=== PATIENT | male | born 1960 | race Caucasian/White ===

== ENCOUNTER 2017-07-20 10:10 | Outpatient (CLI) | payer OTHER ==
[2017-07-20 12:06] LABS: #Basophils 0.1 thou/uL (0.0-0.2); #Eosinphils 0.1 thou/uL (0.0-0.7); #Lymphocytes 1.3 thou/uL (1.20-3.40); #Monocytes 0.6 thou/uL (0.11-0.59); #Neutrophils 4.2 thou/uL (1.40-6.50); %Basophils 0.8 % (0.0-1.0); %Eosinophils 0.9 % (0.0-10.0); %Lymphocytes 21.1 % (21.0-51.0); %Monocytes 9.6 % (0.0-10.0); %Neutrophils 67.6 % (42.0-75.0); Hemoglobin 12.3 g/dL (14.0-18.0); Mean Corpuscular HGB CONC 32.5 g/dL (32.0-36.0); Mean Corpuscular Hemoglobin 25.8 pg (27.0-31.0); Mean Corpuscular Volume 79.4 fl (80.0-94.0); Mean Platelet Volume 6.1 fL (7.4-10.4); Platelet Count 272 thou/uL (130-400); RBC Distribution Width 13.9 % (11.5-14.5); Red Blood Cell (RBC) Count 4.77 mill/uL (4.70-6.10); White Blood Cell (WBC) Count 6.3 thou/uL (4.8-10.8)
[2017-07-20 12:32] LABS: ALT (SGPT) 15 U/L (8-55); AST (SGOT) 18 U/L (5-34); Albumin 3.8 g/dL (3.5-5.0); Alkaline Phosphatase 88 U/L (40-150); Anion Gap 13 mmol/L (10-20); BUN (Urea Nitrogen) 14 mg/dL (8.4-25.7); Bilirubin, Direct 0.2 mg/dL (0.1-0.3); Bilirubin, Total 0.3 mg/dL (0.2-1.2); CRP (Inflammatory) 0.82 mg/dL (= or < 0.5); Calc. Creatinine Clearance 0 mL/min (70-130); Calcium 9.4 mg/dL (7.8-10.44); Carbon Dioxide 29 mmol/L (22-29); Chloride 104 mmol/L (98-107); Estimated GFR-MDRD 75; Glucose 95 mg/dL (70-105); Protein, Total 8.1 g/dL (6.0-8.3); Sodium 141 mmol/L (136-145)
--- NOTE | 2017-07-20 13:37 | RAD ---
RIGHT KNEE 3 VIEWS: HISTORY: Right knee pain. FINDINGS: Right knee prosthesis in place without perihardware lucency. Heterotopic ossification over the supra patellar bursa without significant fluid distention. No acute fracture, dislocation, or aggressive e rosions. Soft tissue swelling with some distortion of fat planes superior to the patella. IMPRESSION: 1. Right knee prosthesis in place without evidence of hardware complication. 2. Soft tissue swelling suprapatellar area. Cause is not evident. POS: [facility]
--- NOTE | 2017-07-20 15:42 | NM ---
WHOLE BODY BONE SCAN WITH TRIPLE PHASE IMAGING THROUGH THE KNEES: 07/20/17 HISTORY: 57-year-old male with right knee replacement two years ago, pain in the right knee. RADIOPHARMACEUTICAL: 31.4 millicuries technetium 99m-MDP injected intravenously. FINDINGS: There is increased blood flow and blood pooling in the right knee compared to the left knee. Delayed images also demonstrate increased periarticular uptake along the right knee replacement. Mild increas ed uptake in the left knee likely due to degenerative changes. Degenerative changes are also seen in the shoulders, elbows, wrists, hips, feet and cervical spine. T racer excretion of both kidneys are within normal limits. Correlation is made with the plain radiographs of the right knee from the same date. IMPRESSION: Findings are suspicious for right knee infection/loosening involving the right knee arthroplasty. POS: [facility]
== END 2017-07-20 10:11 | disposition home or self-care (01) ==
LOC: NM 10:10
PROVIDERS: ATTEND Internal Medicine Infectious Disease
DX: M79.89 Other specified soft tissue disorders (principal); M25.561 Pain in right knee; Z96.651 Presence of right artificial knee joint
CPT/HCPCS: 78315; 80048; 80076; 85025; 86140; A9503

== ENCOUNTER 2017-07-25 16:15 | Inpatient (IN) | payer OTHER ==
[2017-07-27] MEDS ORDERED: Fentanyl 100 MCG/2 ML VIAL ONE ×6 (10:25→16:03)
[2017-07-27] MEDS ORDERED: Ropivacaine 0.2% HCl/PF 20 ML ONE (10:25)
[2017-07-27] MEDS ORDERED: Midazolam HCl 2 mg/2 ml Vial ONE (10:25)
[2017-07-27] MEDS ORDERED: Sodium Chloride 0.9% 100 ML ONE (10:25)
[2017-07-27] MEDS ORDERED: Zolpidem Tartrate 5 MG TAB PO PRN (12:05)
[2017-07-27] MEDS ORDERED: Ondansetron HCl/PF 4 MG/2 ML Vial IVP PRN ×3 (12:05→14:25)
[2017-07-27] MEDS ORDERED: traMADol HCl 50 MG TAB PO PRN ×3 (12:05→12:31)
[2017-07-27] MEDS ORDERED: HYDROcodone/Acetaminophen 10/325 mg Tablet PO PRN (12:05)
[2017-07-27] MEDS ORDERED: Bupivacaine 0.5% 50 ML in Sodium Chloride 0.9% 50 ML NERVE BLCK SCH (12:05)
[2017-07-27] MEDS ORDERED: Promethazine HCl 25 MG/ML VIAL IM PRN ×3 (12:05→14:25)
[2017-07-27] MEDS ORDERED: Fentanyl 100 MCG/2 ML VIAL IV PRN (12:06)
[2017-07-27] MEDS ORDERED: Acetaminophen 325 MG TAB PO PRN (12:31)
[2017-07-27] MEDS ORDERED: Fentanyl 100 MCG/2 ML VIAL SLOW IVP PRN (12:31)
[2017-07-27] MEDS ORDERED: diphenhydrAMINE 25 MG CAP PO PRN (12:31)
[2017-07-27] MEDS ORDERED: Tobramycin/Dexamethasone Ophth Oint 3.5 GM TUBE ONE (12:38)
[2017-07-27] MEDS ORDERED: Tobramycin Sulfate 1.2 GM VIAL ONE ×2 (12:40→12:41)
[2017-07-27] MEDS ORDERED: Tranexamic Acid 1,000 MG in Sodium Chloride 0.9% 100 ML IVPB SCH (12:45)
[2017-07-27] MEDS ORDERED: Promethazine HCl 25 MG/ML VIAL SLOW IVP PRN (14:25)
[2017-07-27] MEDS ORDERED: Fentanyl 250 MCG/5 ML VIAL ONE (14:36)
[2017-07-27] MEDS ORDERED: Promethazine HCl 25 MG/ML VIAL ONE ×2 (15:15→15:37)
[2017-07-27] MEDS ORDERED: Ropivacaine 0.2% HCl/PF (40 MG/20 ML VIAL) ONE (15:37)
[2017-07-27] MEDS ORDERED: Ropivacaine 0.5% HCl/PF (150 MG/30 ML VIAL) ONE (15:37)
[2017-07-27] MEDS ORDERED: Lidocaine 1% PF 5 ML VIAL ONE (15:48)
[2017-07-27] MEDS ORDERED: ePHEDrine/0.9% NaCl/PF SYRINGE 50 mg/10 ml ONE (15:48)
[2017-07-27] MEDS ORDERED: PHENYLEPHRINE-NS 100 MCG/ML 10 ML SYRINGE ONE (15:48)
[2017-07-27] MEDS ORDERED: PROPOFOL 200 MG/20 ML VIAL ONE (15:48)
[2017-07-27] MEDS ORDERED: Ketorolac Tromethamine 30 MG/ML VIAL ONE (15:48)
[2017-07-27] MEDS ORDERED: Ondansetron HCl/PF 4 MG/2 ML Vial ONE (15:48)
--- NOTE | 2017-07-27 15:49 | RAD ---
TWO VIEWS OF THE RIGHT KNEE: COMPARISON: 07/20/17. HISTORY: Status post right knee arthroplasty revision. FINDINGS: Two views of the right knee were performed. There has been removal of both the tibia and femoral micah dware. Significant bone cement is present and there is different-appearing hardware in both the femu r and tibia. Surrounding air is from recent surgery. IMPRESSION: Status post right knee arthroplasty revision as above. POS: [facility]
--- NOTE | 2017-07-27 17:24 | SPC ---
ULTRASOUND FLUOROSCOPIC GUIDED LEFT UPPER EXTREMITY PICC LINE PLACEMENT 07/27/17 INDICATION: Need for termite exterminator IV antibiotics; history of right total knee infection. TECHNIQUE: Informed consent was obtained. Preprocedural ultrasound demonstrates a patent left basilic vein. Site overlying left basilic vein was prepped and draped in the usual sterile fashion. 1% lidocaine was ad ministered overlying the subcutaneous tissues. Under ultrasound guidance, a micropuncture access kit was utilized to gain access to left basilic vein. Guide wire was advanced over the wire and into the sheath. The sheath and wire were removed. The catheter flushed and aspirated appropriately. Tip of th e catheter seen at the level of the cavoatrial junction. Total fluoroscopic time was 0.3 minutes. Tot al exposure was 2897 mGy. IMPRESSION: Successful left upper extremity PICC line placement. POS: [facility]
[2017-07-27] MEDS: Sodium Chloride 0.9% 1,000 ML IV SCH ×2 (17:55→23:50)
[2017-07-27] MEDS: CEFAZOLIN/Water 2 GM/20 ML SYRINGE SLOW IVP SCH ×2 (18:12→22:33)
[2017-07-27] MEDS: HYDROcodone/Acetaminophen 10/325 mg Tablet PO PRN ×2 (18:35→22:32)
[2017-07-27] MEDS: Senokot S 8.6-50 MG TAB PO SCH (20:37)
[2017-07-27] MEDS: Ketorolac Tromethamine 30 MG/ML VIAL IVP SCH (20:37)
[2017-07-27] MEDS: Ferrous Gluconate 324 MG TAB PO SCH (20:37)
[2017-07-27] MEDS: Aspirin 81 mg Enteric Coated Tablet PO SCH (20:37)
[2017-07-28] MEDS ORDERED: Vancomycin HCl 1.5 GM in Sodium Chloride 0.9% 250 ML 300 ML IVPB SCH (02:00)
[2017-07-28] MEDS: HYDROcodone/Acetaminophen 10/325 mg Tablet PO PRN ×6 (02:34→23:12)
[2017-07-28] MEDS: Ketorolac Tromethamine 30 MG/ML VIAL IVP SCH ×4 (02:34→21:40)
[2017-07-28 05:34] LABS: Hemoglobin 9.2 g/dL (14.0-18.0); Mean Corpuscular HGB CONC 33.2 g/dL (32.0-36.0); Mean Corpuscular Hemoglobin 26.4 pg (27.0-31.0); Mean Corpuscular Volume 79.6 fl (80.0-94.0); Platelet Count 201 thou/uL (130-400); Red Blood Cell (RBC) Count 3.48 mill/uL (4.70-6.10); White Blood Cell (WBC) Count 6.7 thou/uL (4.8-10.8)
[2017-07-28] MEDS: Sodium Chloride 0.9% 1,000 ML IV SCH ×3 (08:41→23:24)
[2017-07-28] MEDS: Ferrous Gluconate 324 MG TAB PO SCH ×2 (08:42→21:40)
[2017-07-28] MEDS: Aspirin 81 mg Enteric Coated Tablet PO SCH ×2 (08:42→21:40)
[2017-07-28] MEDS: Senokot S 8.6-50 MG TAB PO SCH ×2 (08:44→21:40)
[2017-07-28] MEDS: Multivitamin W/ Minerals 1 TAB PO SCH (08:44)
[2017-07-28] MEDS ORDERED: Multivitamin W/ Minerals 1 TAB PO SCH (09:00)
[2017-07-28 10:17] VITALS: BMI 30.1
--- NOTE | 2017-07-28 16:56 | OP ---
PREOPERATIVE DIAGNOSIS: Chronically infected right total knee replacement. POSTOPERATIVE DIAGNOSIS: Chronically infected right total knee replacement. PROCEDURE: One-stage revision for infection, right knee. SURGEON: Chandan Puente MD DESIGNER AND PATTERNMAKER: Samuel Barth PA-C BLOOD LOSS: Minimal. SPECIMEN: Synovium sent for pathologic exam and cultures sent before antibiotics were administered. DRAINS: None. COMPLICATIONS: None. IMPLANTS USED: Eric Triathlon femur, size 6, cruciate retaining Eric all polyethylene, tibia s ize 6 x 16. OPERATIVE INDICATIONS: Mr. Montesinos has had chronic pain in his right knee with progressive loss of rang e of motion, getting worse over the last year. Currently, his pain is so severe, has difficulty gett ing around on a range of motion support, could not extend his knee, has a chronic contracture present s with referral from Dr. Marsh, showing a positive bone scan and cultures Staph aureus. After preppi ng and draping the right leg, the old scar was opened. The skin was in very poor condition. He has had a previous infection which caused the skin to rupture and scarred heal by secondary intent, lilo ng a very poor soft tissue envelope for meticulously tried to recreate the layers and performed a med ial arthrotomy. The knee was completely socked in with scar, true arthrofibrosis situation. Signifi cant amount of time was spent doing a complete synovectomy and recreating the gutters medially and la terally. Once the synovectomy was performed, the gutters were recreated. I was able to displace the patella laterally. I was not able to gian the patella of course. The femur was loosened with oste otomes and removed and the cement mantle was removed from the femur. There was quite a bit of osteol ysis and the posterior femoral condyles were highly deficient. The tibia was then removed once again using osteotomes and manipulation. I was able to then tap the tibia out and all the cement was roscoe russell from the tibia as well. There was no cortical perforation on the femur or the tibia, but there w as a significant amount of osteolysis around the femur and the tibia. After this was completed, I us ed a brush-type canal cleaning device for the pulsatile lavage engineering systems analyst to clean the femur and the t ibial canals. Created cement loaded with tobramycin and 2.4 grams and 3 grams of vancomycin ma de 2 packs of cement, made a cylinder cement, placed in the tibia, then loosely cemented the all poly tibia component in an approximation and allow the cement completely dry and then cemented loosely th e femur on as well. After this was allowed to cure, excess cement was removed as needed. Irrigation was performed again. The knee was closed with some difficulty due to the very poor soft tissue enve she with #2 Vicryl, #2 Quill and then there was no subcutaneous tissue to close at all. So I closed the skin with 2-0 Prolene. Postoperative plan is for absolutely no range of motion, soft tissue hea ling was critical in this patient where he could get the soft tissue to heal and then we might start some physical therapy in 6-8 weeks. He will be restarted on vancomycin and Ancef in an anticipation that the Ancef would be that would be required and the vancomycin may be able to be discontinued. On ce cultures were obtained, Dr. Marsh was consulted.
[2017-07-28] MEDS: Zolpidem Tartrate 5 MG TAB PO PRN (21:39)
--- NOTE | 2017-07-29 01:46 | CON ---
DATE OF CONSULTATION: 07/29/2017 REASON FOR CONSULTATION: Right knee infection. HISTORY OF PRESENT ILLNESS: A 57-year-old gentleman whom I had seen in 08/2016 at [facility] when he was admitted with a right-knee infection. Patient has a history of osteoarthritis in right and left knee associated with previous port injuries with multiple prior procedures including joint replacements in the right side. With latest procedure was in 01/2016, which was a revision total knee replacement, repair of medial retinacular defect in April. Patient developed progressive swelling and arthrocentesis was done 4 or 5 times, each time with what appeared to be normal synovial fluid; however, the swelling kept returning. In the last time, there was evidence of inflammatory changes. Patient was admitted and had leukocytosis with an elevated C-reactive protein. This time, synovial fluid was cloudy and methicillin-sensitive Staphylococcus aureus was retrieved from the synovial fluid. Patient had surgical intervention with resection of bursa. A joint was evaluated and irrigated, but no elements were exchanged. Patient was treated for protracted time with IV Ancef, rifampin, and then po Keflex and then Keflex suppressive therapy without improvement in pain. He still having to use a brace for ambulation and when I saw him in the clinic who recently has quite a bit of pain and some swelling, but no erythema. We decided to proceed with plain films and bone scan. The bone scan was positive and patient was admitted by Dr. Puente now has had removal of the previous implant and had a new functional spacer placed. There was concerns regarding the status of the soft tissues and there were very limited. There was not enough subcutaneous tissue, and there was evidence of osteolysis during the surgical procedure probably secondary to infection. Patient currently denies any headaches, no visual symptoms, sore throat, odynophagia, dysphagia. No cough or sputum production or chest pain. No abdominal pain or diarrhea, or genitourinary symptoms. No neurological symptoms. PAST MEDICAL HISTORY: Osteoarthrosis, multiple joints related to sports injuries, multiple surgeries. Numerous right knee replacements and bilateral shoulder operations, right ankle fracture. ALLERGIES: None. MEDICATIONS: Had been on Keflex suppressive therapy. SOCIAL HISTORY: History of alcoholism up to 15 years prior, history of chewing tobacco but no smoking. 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 FAMILY HISTORY: Noncontributory. PHYSICAL EXAMINATION: VITAL SIGNS: Showed T-max 98.3, blood pressure 150/96, pulse 91, respirations 16, O2 sat 94%. GENERAL: Appears no distress. SKIN: Shows right knee site with no drain in place. He does not have a splint at this time. Patient has a PICC line inserted. No lymphadenopathy. HEENT: Noncontributory. NECK: Supple. LUNGS: Clear to auscultation and percussion. HEART: S1, S2, regular rate. ABDOMEN: Soft, not distended or tender. No ascites. No bladder distention. EXTREMITIES: No other joint inflammatory process noted. NEUROLOGIC: Nonfocal. LABORATORY DATA AND X-RAY FINDINGS: White cell count 6.7, hemoglobin 9.2, platelets 201. Chemistry was essentially normal except for CRP of 0.82. Urinalysis was normal. Microbiology thus far the cultures from the specimen obtained during surgery showed no organisms seen. Gram stain and no growth at 12 hours. 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 Patient will be treated with cefazolin for protracted period of time, then transitioned to oral Keflex for suppressive therapy. We will add rifampin again if patient is able to tolerate it for the first few weeks. Monitor culture results and adjust antimicrobial therapy accordingly. MTDD
[2017-07-29] MEDS: HYDROcodone/Acetaminophen 10/325 mg Tablet PO PRN ×5 (03:27→20:39)
[2017-07-29] MEDS: Ketorolac Tromethamine 30 MG/ML VIAL IVP SCH ×3 (03:28→15:24)
[2017-07-29 05:39] LABS: Hemoglobin 9.5 g/dL (14.0-18.0); Mean Corpuscular Hemoglobin 26.6 pg (27.0-31.0); Mean Corpuscular Volume 80.5 fl (80.0-94.0); Mean Platelet Volume 6.3 fL (7.4-10.4); Platelet Count 201 thou/uL (130-400); RBC Distribution Width 14.3 % (11.5-14.5); Red Blood Cell (RBC) Count 3.56 mill/uL (4.70-6.10); White Blood Cell (WBC) Count 5.7 thou/uL (4.8-10.8)
[2017-07-29] MEDS: Ferrous Gluconate 324 MG TAB PO SCH ×2 (09:10→20:37)
[2017-07-29] MEDS: Senokot S 8.6-50 MG TAB PO SCH ×2 (09:10→20:38)
[2017-07-29] MEDS: Aspirin 81 mg Enteric Coated Tablet PO SCH ×2 (09:10→20:37)
[2017-07-29] MEDS: Multivitamin W/ Minerals 1 TAB PO SCH (09:11)
[2017-07-29] MEDS: Sodium Chloride 0.9% 1,000 ML IV SCH (09:47)
[2017-07-29] MEDS: CEFAZOLIN/Water 2 GM/20 ML SYRINGE SLOW IVP SCH (20:37)
[2017-07-29] MEDS: Zolpidem Tartrate 5 MG TAB PO PRN (21:59)
[2017-07-30] MEDS: HYDROcodone/Acetaminophen 10/325 mg Tablet PO PRN ×5 (00:43→16:21)
[2017-07-30] MEDS: Sodium Chloride 0.9% 1,000 ML IV SCH ×2 (04:47→10:07)
[2017-07-30] MEDS: CEFAZOLIN/Water 2 GM/20 ML SYRINGE SLOW IVP SCH ×2 (04:50→13:07)
[2017-07-30 05:38] LABS: Hemoglobin 9.2 g/dL (14.0-18.0); Mean Corpuscular HGB CONC 32.9 g/dL (32.0-36.0); Mean Corpuscular Hemoglobin 26.2 pg (27.0-31.0); Mean Corpuscular Volume 79.7 fl (80.0-94.0); Mean Platelet Volume 6.8 fL (7.4-10.4); Platelet Count 231 thou/uL (130-400); RBC Distribution Width 14.2 % (11.5-14.5); Red Blood Cell (RBC) Count 3.53 mill/uL (4.70-6.10); White Blood Cell (WBC) Count 6.2 thou/uL (4.8-10.8)
[2017-07-30] MEDS: Aspirin 81 mg Enteric Coated Tablet PO SCH (08:39)
[2017-07-30] MEDS: Ferrous Gluconate 324 MG TAB PO SCH (08:40)
[2017-07-30] MEDS: Multivitamin W/ Minerals 1 TAB PO SCH (08:40)
[2017-07-30] MEDS: Senokot S 8.6-50 MG TAB PO SCH (08:40)
[2017-07-30 16:20] VITALS: BP 131/80; TEMP 98.6
== END 2017-07-30 16:36 | disposition home or self-care (01) | DRG 468 ==
LOC: SURG A 07-27 09:27
PROVIDERS: ADMIT Orthopaedic Surgery; ATTEND Orthopaedic Surgery
PROC: 0SPC0JZ Removal of Synthetic Substitute from Right Knee Joint, Open Approach (ICD-10-PCS; principal; 2017-07-27)
PROC: 0SRC0J9 Replacement of Right Knee Joint with Synthetic Substitute, Cemented, Open Approach (ICD-10-PCS; 2017-07-27)
DX: T84.53XA Infection and inflammatory reaction due to internal right knee prosthesis, initial encounter (principal); Y83.1 Surgical operation with implant of artificial internal device as the cause of abnormal reaction of the patient, or of later complication, without mention of misadventure at the time of the procedure
CPT/HCPCS: 36415; 36569; 85027; 87070; 87205; 88305; C1713; C1751; C1776; G8978-GP-CI; G8979-GP-CI; J0131; J1885; J2001; J2250; J2405; J2550; J2704; J2795; J3010; J3260; J3370; J3490; J7050; Q4166-KX-JC

== ENCOUNTER 2017-07-25 17:19 | Outpatient (CLI) | payer OTHER ==
--- NOTE | 2017-07-25 18:21 | RAD ---
TWO VIEW CHEST: 07/25/17 HISTORY: Preoperative evaluation. Lung le are clear. Heart and mediastinum unremarkable. Osseous structures unremarkable. IMPRESSION: No acute finding. POS: [facility]
--- NOTE | 2017-07-26 14:35 | EKG ---
Test Reason : Blood Pressure : / mmHG Vent. Rate : 074 BPM Atrial Rate : 074 BPM P-R Int : 166 ms QRS Dur : 098 ms QT Int : 380 ms P-R-T Axes : 033 -17 019 degrees QTc Int : 421 ms Normal sinus rhythm Normal ECG No previous ECGs available Confirmed by DEVENDRA VALDIVIA ([id number]) on 07/26/2017 2:35:24 PM Referred By: JOANNA Confirmed By:DEVENDRA VALDIVIA
== END 2017-07-25 17:20 | disposition home or self-care (01) ==
LOC: LABBT 17:19
PROVIDERS: ATTEND Orthopaedic Surgery
DX: Z01.818 Encounter for other preprocedural examination (principal); T84.53XA Infection and inflammatory reaction due to internal right knee prosthesis, initial encounter
CPT/HCPCS: 71046; 85610; 86850; 86900; 86901; 87081; 93005; 93010

== ENCOUNTER 2018-03-20 14:00 | Inpatient (IN) | payer OTHER ==
[2018-03-28 16:05] VITALS: BMI 31.1
[2018-04-02] MEDS ORDERED: Fentanyl 100 MCG/2 ML VIAL ONE ×3 (08:32→12:13)
[2018-04-02] MEDS ORDERED: Midazolam HCl 2 mg/2 ml Vial ONE (08:32)
[2018-04-02] MEDS ORDERED: Ropivacaine 0.2% HCl/PF 20 ML ONE (08:32)
[2018-04-02] MEDS ORDERED: Sodium Chloride 0.9% 100 ML ONE (08:42)
[2018-04-02] MEDS ORDERED: Tranexamic Acid 1,000 MG/10 ML VIAL ONE (08:42)
[2018-04-02] MEDS ORDERED: Vancomycin HCl 1.5 GM in Sodium Chloride 0.9% 250 ML 300 ML IVPB SCH (08:45)
[2018-04-02] MEDS ORDERED: Famotidine/PF 20 mg/2ml Vial ONE (10:32)
[2018-04-02] MEDS ORDERED: Ondansetron PF 4 MG/2 ML Vial IVP PRN ×2 (10:59→11:29)
[2018-04-02] MEDS ORDERED: traMADol HCl 50 MG TAB PO PRN ×2 (10:59)
[2018-04-02] MEDS ORDERED: Ropivacaine HCl/PF 250 ML in Premix Bag 1 BAG NERVE BLCK SCH (10:59)
[2018-04-02] MEDS ORDERED: Promethazine HCl 25 MG/ML VIAL IM PRN ×3 (10:59→14:13)
[2018-04-02] MEDS ORDERED: Zolpidem Tartrate 5 MG TAB PO PRN ×3 (10:59→14:55)
[2018-04-02] MEDS ORDERED: HYDROcodone/Acetaminophen 5/325 mg Tablet PO PRN ×2 (10:59)
[2018-04-02] MEDS ORDERED: Fentanyl 100 MCG/2 ML VIAL IV PRN (11:00)
[2018-04-02] MEDS ORDERED: Acetaminophen 325 MG TAB PO PRN ×2 (11:29→11:30)
[2018-04-02] MEDS ORDERED: diphenhydrAMINE 25 MG CAP PO PRN ×2 (11:29→14:55)
[2018-04-02] MEDS ORDERED: HYDROcodone/Acetaminophen 10/325 mg Tablet PO PRN ×2 (11:29)
[2018-04-02] MEDS ORDERED: CEFAZOLIN/Water 2 GM/20 ML SYRINGE SLOW IVP SCH (11:30)
[2018-04-02] MEDS ORDERED: Tobramycin Sulfate 1.2 GM VIAL ONE ×2 (11:58→12:48)
[2018-04-02] MEDS ORDERED: Tobramycin/Dexamethasone Ophth Oint 3.5 GM TUBE ONE (11:58)
[2018-04-02] MEDS ORDERED: Ropivacaine 0.5% HCl/PF (150 MG/30 ML VIAL) ONE (13:41)
[2018-04-02] MEDS ORDERED: Ondansetron HCl/PF 4 MG/2 ML Vial IVP PRN (14:13)
[2018-04-02] MEDS ORDERED: HYDROmorphone 2 MG/ML VIAL SLOW IVP PRN (14:13)
[2018-04-02] MEDS ORDERED: Promethazine HCl 25 MG/ML VIAL SLOW IVP PRN (14:13)
[2018-04-02] MEDS ORDERED: HYDROmorphone 2 MG/ML VIAL ONE (14:17)
[2018-04-02] MEDS ORDERED: Lidocaine 1% PF 5 ML VIAL ONE (14:29)
[2018-04-02] MEDS ORDERED: PROPOFOL 200 MG/20 ML VIAL ONE (14:29)
[2018-04-02] MEDS ORDERED: ePHEDrine 50 MG/ML VIAL ONE (14:29)
[2018-04-02] MEDS ORDERED: Ondansetron PF 4 MG/2 ML Vial ONE (14:29)
[2018-04-02] MEDS ORDERED: Rocuronium Bromide 10 MG/ML (10ML VIAL) ONE (14:29)
[2018-04-02] MEDS ORDERED: PHENYLEPHRINE-NS 100 MCG/ML 10 ML SYRINGE ONE (14:29)
[2018-04-02] MEDS ORDERED: Ketorolac Tromethamine 30 MG/ML VIAL ONE (14:49)
[2018-04-02] MEDS ORDERED: Naloxone HCl 0.4 mg/ml Vial IV PRN (14:55)
[2018-04-02] MEDS ORDERED: diphenhydrAMINE 50 MG/ML VIAL IM/IV PRN (14:55)
--- NOTE | 2018-04-02 14:58 | RAD ---
RIGHT KNEE 2 VIEWS: HISTORY: Postop total knee. COMPARISON: Knee radiograph 07/27/2017. FINDINGS: Satisfactory postoperative revision of the total knee arthroplasty. Antibiotic cement has been remov ed. Expected postoperative gas and edema. IMPRESSION: Satisfactory postoperative findings. POS: [facility]
[2018-04-02] MEDS ORDERED: CEPHALEXIN 500 MG PO SCH (15:00)
--- NOTE | 2018-04-02 15:36 | OP ---
DATE OF PROCEDURE: 04/02/2018 PREOPERATIVE DIAGNOSIS: Chronically infected right total knee. POSTOPERATIVE DIAGNOSIS: Chronically infected right total knee. PROCEDURE: Revision for infection of the right knee. SPORTS INTERN: Diego Caballero MD BLOOD LOSS: Minimal. SPECIMEN: Cultures and frozen section. Frozen section showed in some areas, 30 neutrophils per high-power field. Other areas appeared to be quite benign with fibrosis. TOURNIQUET TIME: 108 minutes. IMPLANTS USED: [place] Triathlon #6 femur, 6 x 16 tibia, patella was not resurfaced. I used 2 doses of antibiotic cement each with 3 g of vancomycin and 2.4 g of tobramycin. PROCEDURE IN DETAIL: I previously removed his infected total knee, and placed a spacer in the joint with methylmethacrylate and implants, in return for full revision of the knee today after about 6 to 8 months of treatment with IV antibiotics. His markers have decreased, it had not quite returned to normal, but looked about as good as they could look, so it was time to go back and take another look in the joint. We made an incision through the old scar, was meticulous in opening the flap, so I made a medial parapatellar arthrotomy. I did do a quadriceps split proximally, performed complete synovectomy, recreated the medial and lateral gutters. I removed the femur and the tibia, which were cemented, this was done with some difficulty using the [employer] cement removal instruments and osteotomes or saw. Once I had this completely exposed, I did take the synovium from the gutters and tissue from the edge of the implant and the findings were as described above. I was ready for a complete revision unfortunately with this appearance of continued infection to elect to place a cemented total knee with antibiotic cement. I prepared the tibia by using reverse cutting curettes, curetting out the canal. I did place a cement spacer to keep cement from going all the way down the tibia, cemented 16-mm tibial implant with antibiotic cement. Once the cement was allowed to cure, I cleaned up the femur, also cleaned the inside of the canal with a canal brush and reverse cutting curette. Cleaned the end of the femur, and made sure all old cement was removed. I then cemented a Eric Triathlon femur onto the end of the femur to try to get appropriate soft tissue tension. The patella was not resurfaced. The quadriceps snip was repaired with #2 FiberWire. The medial arthrotomy was repaired with #2 Vicryl and #2 Quill, subcu closed with 0 Quill, and skin was closed with 2-0 Prolene. Sterile dressing was applied. The tourniquet was released. Job ID: [id number]
[2018-04-02] MEDS: Morphine CADD 1 MG/ML CADD IV PRN (16:28)
[2018-04-02] MEDS: Sodium Chloride 0.9% 1,000 ML IV SCH ×2 (16:44→19:55)
[2018-04-02] MEDS ORDERED: CEFAZOLIN 2 GM in Premix Bag 1 BAG IVPB SCH (17:00)
[2018-04-02] MEDS: Ondansetron PF 4 MG/2 ML Vial IVP PRN (17:30)
[2018-04-02] MEDS: Ketorolac Tromethamine 30 MG/ML VIAL IVP SCH ×2 (17:34→22:41)
[2018-04-02] MEDS: Promethazine HCl 25 MG/ML VIAL IM PRN (19:54)
[2018-04-02] MEDS: CEFAZOLIN 2 GM in Premix Bag 1 BAG IVPB SCH (19:54)
[2018-04-02] MEDS: Rifampin 300 MG CAP PO SCH (19:55)
[2018-04-02] MEDS: Ferrous Gluconate 324 MG TAB PO SCH (19:55)
[2018-04-02] MEDS: Aspirin 81 mg Enteric Coated Tablet PO SCH (19:55)
[2018-04-02] MEDS: Senokot S 8.6-50 MG TAB PO SCH (19:55)
[2018-04-03] MEDS: CEFAZOLIN 2 GM in Premix Bag 1 BAG IVPB SCH (02:53)
[2018-04-03] MEDS: Ondansetron PF 4 MG/2 ML Vial IVP PRN ×2 (02:53→18:37)
[2018-04-03 04:36] LABS: Hemoglobin 10.4 g/dL (14.0-18.0); Mean Corpuscular HGB CONC 32.7 g/dL (32.0-36.0); Mean Corpuscular Hemoglobin 27.8 pg (27.0-31.0); Mean Corpuscular Volume 85.1 fL (78.0-98.0); Mean Platelet Volume 6.8 fL (7.4-10.4); Platelet Count 236 thou/uL (130-400); RBC Distribution Width 13.1 % (11.5-14.5); Red Blood Cell (RBC) Count 3.73 mill/uL (4.70-6.10); White Blood Cell (WBC) Count 6.4 thou/uL (4.8-10.8)
[2018-04-03] MEDS: Cefepime 1 GM in Sodium Chloride 0.9% 100 ML IVPB SCH ×3 (05:34→21:34)
[2018-04-03] MEDS: Ketorolac Tromethamine 30 MG/ML VIAL IVP SCH ×4 (05:37→22:08)
[2018-04-03] MEDS: Ferrous Gluconate 324 MG TAB PO SCH ×2 (08:31→20:00)
[2018-04-03] MEDS: Cephalexin 250 MG CAP PO SCH ×2 (08:32→14:46)
[2018-04-03] MEDS: Multivitamin W/ Minerals 1 TAB PO SCH (08:32)
[2018-04-03] MEDS: Senokot S 8.6-50 MG TAB PO SCH ×2 (08:34→19:56)
[2018-04-03] MEDS ORDERED: Non-Formulary Item 1 EACH (Multivitamin [Multivitamins] 1 CAP) PO SCH (09:00)
[2018-04-03] MEDS ORDERED: Aspirin 81 mg Enteric Coated Tablet PO SCH (09:30)
[2018-04-03] MEDS: Rifampin 300 MG CAP PO SCH ×2 (10:27→20:00)
[2018-04-03] MEDS: Aspirin 81 mg Enteric Coated Tablet PO SCH ×2 (10:29→20:00)
[2018-04-03] MEDS: Vancomycin HCl 1.25 GM in Sodium Chloride 0.9% 250 ML 250 ML IVPB SCH ×2 (10:37→20:00)
[2018-04-03] MEDS: Sodium Chloride 0.9% 1,000 ML IV SCH ×3 (10:40→22:42)
[2018-04-03] MEDS: Morphine CADD 1 MG/ML CADD IV PRN (15:13)
--- NOTE | 2018-04-03 22:00 | PDOC.PN ---
- Subjective Encounter Start Date: 04/03/18 Encounter Start Time: 19:30 Patient seen and examined for med mngt. Pain controlled. No fever/chills/RLE swelling. No new complaints. No overnight events - Objective MAR Reviewed: Yes Vital Signs & Weight: Vital Signs (12 hours) Temp Pulse Resp BP Pulse Ox 04/03/18 20:59 97.9 F 87 17 117/76 94 L 04/03/18 20:00 94 L 04/03/18 15:30 98.8 F 90 18 122/78 94 L 04/03/18 10:57 98.9 F 83 20 116/75 96 Weight Admit Weight 230 lb Weight 230 lb I&O: 04/02/18 04/03/18 04/04/18 06:59 06:59 06:59 Intake Total 2009 2119 Output Total 600 400 Balance 1410 1720 Result Diagrams: 04/04/18 04:24 EKG Reviewed by me: Yes (Tele rhythm SR) Phys Exam - Physical Examination Constitutional: NAD Respiratory: no wheezing, no rhonchi Cardiovascular: RRR, no rub Gastrointestinal: soft, non-tender, positive bowel sounds Dx/Plan - Plan DVT proph w/SCDs 1. Chronic Rt Knee infection - Mngt per ID/Ortho 2. Obesity BMI 31.2 3. CKD 2 4. Mild hyponatremia PLAN: Atbx per ID PICC line ordered Repeat labs as outpt Add Pepcid due to chronic NSAID use Cont current meds as below Laboratory Tests 03/28/18 16:08 Sodium 135 L BUN 22 Creatinine 0.98 C-Reactive Protein 2.20 H Review of Systems - Review of Systems Cardiovascular: negative: chest pain, palpitations, orthopnea, paroxysmal nocturnal dyspnea, edema, light headedness, other Gastrointestinal: Constipation. negative: Nausea, Vomiting, Abdominal Pain, Diarrhea, Melena, Hematochezia, Other - Medications/Allergies Allergies/Adverse Reactions: Allergies Allergy/AdvReac Type Severity Reaction Status Date / Time No Known Allergies Allergy Verified 03/28/18 16:05 Medications: Current Medications Acetaminophen (Tylenol) 650 mg PO Q4H PRN PRN Reason: Headache/Fever or Pain Aspirin (Ecotrin) 81 mg PO BID [facility] Last Admin: 04/03/18 20:00 Dose: 81 mg Diphenhydramine HCl (Benadryl) 25 mg IM/IV Q3H PRN PRN Reason: Itching Diphenhydramine HCl (Benadryl) 25 mg PO Q3H PRN PRN Reason: Itching Ferrous Gluconate (Fergon) 324 mg PO BID [facility] Last Admin: 04/03/18 20:00 Dose: 324 mg Vancomycin HCl 1.5 gm/ Sodium (Chloride) 300 mls @ 200 mls/hr IVPB ONCALL-OR [facility] Last Admin: 04/03/18 10:26 Dose: 300 mls Ropivacaine 250 ml/ Device 250 mls @ 0 mls/hr NERVE BLCK INF [facility] Last Admin: 04/03/18 15:17 Dose: 250 mls Sodium Chloride (Normal Saline 0.9%) 1,000 mls @ 100 mls/hr IV .Q10H [facility] Last Admin: 04/03/18 18:41 Dose: Not Given Cefepime HCl 1 gm/ Sodium (Chloride) 100 mls @ 200 mls/hr IVPB Q8HR [facility] Last Admin: 04/03/18 21:34 Dose: 100 mls Vancomycin HCl 1.25 gm/ Sodium (Chloride) 250 mls @ 166.67 mls/hr IVPB Q12HR [facility] Last Admin: 04/03/18 20:00 Dose: 250 mls Iron/Minerals/Multivitamins (Theragran M) 1 tab PO DAILY [facility] Last Admin: 04/03/18 08:32 Dose: 1 tab Ketorolac Tromethamine (Toradol) 30 mg IVP Q6HR [facility] Stop: 04/04/18 12:01 Last Admin: 04/03/18 18:37 Dose: 30 mg Morphine Sulfate (Morphine Cadd) 0 mg IV INF PRN PRN Reason: Pain Last Admin: 04/03/18 15:13 Dose: 100 mg Naloxone HCl (Narcan) 0.2 mg IV Q5MIN PRN PRN Reason: RR <8 or pt obtun/unarousable Ondansetron HCl (Zofran) 4 mg IVP Q6H PRN PRN Reason: Nausea/Vomiting Last Admin: 04/03/18 18:37 Dose: 4 mg Promethazine HCl (Phenergan) 12.5 mg IM Q4H PRN PRN Reason: Nausea/Vomiting Last Admin: 04/02/18 19:54 Dose: 12.5 mg Rifampin (Rifadin) 300 mg PO BID [facility] Last Admin: 04/03/18 20:00 Dose: 300 mg Senna/Docusate Sodium (Senokot S) 2 tab PO BID [facility] Last Admin: 04/03/18 19:56 Dose: Not Given Sodium Chloride (Flush - Normal Saline) 10 ml IVF Q12HR [facility] Last Admin: 04/03/18 19:56 Dose: Not Given Sodium Chloride (Flush - Normal Saline) 10 ml IVF PRN PRN PRN Reason: Saline Flush Zolpidem Tartrate (Ambien) 5 mg PO HSPRN PRN PRN Reason: Insomnia
--- NOTE | 2018-04-03 22:45 | CON ---
DATE OF CONSULTATION: 04/03/2018 HISTORY OF PRESENT ILLNESS: Mr. Montesinos was readmitted and had revision of his right TKR site, which had a spacer in it. Unfortunately, Gram stain of the tissue obtained during the procedure showed, I think 30 wbcs per high-power field. Therefore, the revision procedure was aborted and he had another spacer placed. Cultures were submitted. Currently he has a moderate pain at the site. No headaches. No visual symptoms, sore throat, odynophagia or dysphagia. No cough, sputum production, chest pain. No abdominal pain. He is voiding spontaneously in the urinal. PAST MEDICAL HISTORY: Includes: 1. Osteoarthrosis. 2. Multiple joint injuries related to sports injuries. 3. Multiple surgeries. 4. Numerous right knee replacements. 5. Bilateral shoulder operations. 6. Right ankle fracture. ALLERGIES: NONE. SOCIAL HISTORY: History of alcoholism up to 15 years prior. Never smoker. 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 FAMILY HISTORY: Noncontributory. CURRENT MEDICATIONS: 1. Cefepime. 2. Diphenhydramine. 3. Ferrous gluconate. 4. Toradol. 5. Zofran. 6. Promethazine. 7. Rifampin. 8. Vancomycin. PHYSICAL EXAMINATION: VITAL SIGNS: Essentially normal, O2 saturation 94%. SKIN: Shows the surgical site. I did not remove the dressing at this point from the right knee area. The patient has a peripheral IV access. NECK: No lymphadenopathy. Neck is supple. HEENT: Ocular movements conjugate. Oral cavity moist. LUNGS: Symmetric. Clear breath sounds. S1, S2 regular rate. No S3 or S4. ABDOMEN: Soft, not distended or tender. No ascites. No bladder distention. No other joint inflammatory process noted. LABORATORY DATA: White cell count 6.4, hemoglobin 10.4, platelets 236. Recent chemistry was fairly normal. CRP was 2.2. ASSESSMENT: Multiple joint issues secondary to sports activity with a refractory infection to right knee with multiple previous procedures and more recently with removal of a spacer. Unfortunately, the patient still has inflammatory changes there and will have another washout with another spacer placed. Cultures are still pending, but will probably last turner negative. We will continue with oral cefepime, vancomycin. Discontinue Keflex and continue rifampin for now. Monitor culture results. PICC line placement. PLAN: Discharge on IV cefepime, vancomycin and oral rifampin. Job ID: [id number]
[2018-04-04 04:53] LABS: Hemoglobin 10.4 g/dL (14.0-18.0); Mean Corpuscular HGB CONC 32.7 g/dL (32.0-36.0); Mean Corpuscular Hemoglobin 28.2 pg (27.0-31.0); Mean Corpuscular Volume 86.2 fL (78.0-98.0); Mean Platelet Volume 6.8 fL (7.4-10.4); Platelet Count 234 thou/uL (130-400); RBC Distribution Width 13.2 % (11.5-14.5); White Blood Cell (WBC) Count 6.6 thou/uL (4.8-10.8)
[2018-04-04] MEDS: Cefepime 1 GM in Sodium Chloride 0.9% 100 ML IVPB SCH ×3 (05:44→21:48)
[2018-04-04] MEDS: Ketorolac Tromethamine 30 MG/ML VIAL IVP SCH ×2 (05:46→12:42)
[2018-04-04] MEDS: Ondansetron PF 4 MG/2 ML Vial IVP PRN (07:56)
[2018-04-04] MEDS: Rifampin 300 MG CAP PO SCH ×2 (08:04→21:25)
[2018-04-04] MEDS: Promethazine HCl 25 MG/ML VIAL IM PRN (10:50)
[2018-04-04] MEDS: Vancomycin HCl 1.25 GM in Sodium Chloride 0.9% 250 ML 250 ML IVPB SCH ×2 (10:59→21:24)
[2018-04-04] MEDS: Polyethylene Glycol 3350 17 GM Packet PO SCH (10:59)
[2018-04-04] MEDS: Famotidine 20 MG TAB PO SCH ×2 (11:00→21:25)
[2018-04-04] MEDS: Aspirin 81 mg Enteric Coated Tablet PO SCH ×2 (11:00→21:25)
[2018-04-04] MEDS: Saccharomyces boulardii 250 MG CAP PO SCH (11:00)
[2018-04-04] MEDS: Ferrous Gluconate 324 MG TAB PO SCH ×2 (11:01→21:25)
[2018-04-04] MEDS: Senokot S 8.6-50 MG TAB PO SCH ×2 (11:01→21:25)
[2018-04-04] MEDS: Multivitamin W/ Minerals 1 TAB PO SCH (11:01)
--- NOTE | 2018-04-04 11:54 | SPC ---
FLUOROSCOPIC AND ULTRASOUND GUIDED PICC LINE PLACEMENT: HISTORY: Need for long-term IV access. COMPARISON: PICC line 07/29/2017. FINDINGS: The patient was brought to the specials suite. All questions were answered. Informed consent was ob tained. Timeout was performed. The patient's left arm was prepped and draped in normal sterile fashion. 1 mL of Lidocaine was insti lled into the superficial soft tissues. After adequate anesthesia, over a wire and through a peelawa y sheath, a 50 cm PICC was placed through the basilic vein. The patient tolerated the procedure well without complication. IMPRESSION: Technically successful left basilic PICC line placement. Fluoro time: 1 minute. Dose: 8517 mGy*^cm2. POS: [facility]
--- NOTE | 2018-04-04 16:23 | PDOC.EVN ---
Event Note - Event Note Event Note: Patient awaiting outpatient antibiotic setup. Will sign off. Please call if needed.
[2018-04-04] MEDS ORDERED: Heparin 1,000 UNITS/ML VIAL ONE (18:15)
[2018-04-04] MEDS: Morphine CADD 1 MG/ML CADD IV PRN (18:43)
[2018-04-04] MEDS: Sodium Chloride 0.9% 1,000 ML IV SCH (19:29)
[2018-04-04 20:45] LABS: Vancomycin, Trough 10.1 ug/mL
[2018-04-05] MEDS: Sodium Chloride 0.9% 1,000 ML IV SCH (04:00)
[2018-04-05] MEDS: Cefepime 1 GM in Sodium Chloride 0.9% 100 ML IVPB SCH (06:09)
[2018-04-05] MEDS: Ondansetron PF 4 MG/2 ML Vial IVP PRN (07:41)
[2018-04-05 08:02] VITALS: BP 120/79; TEMP 97.8
[2018-04-05] MEDS: Polyethylene Glycol 3350 17 GM Packet PO SCH (08:19)
[2018-04-05] MEDS: Senokot S 8.6-50 MG TAB PO SCH (08:19)
[2018-04-05] MEDS: Saccharomyces boulardii 250 MG CAP PO SCH (08:19)
[2018-04-05] MEDS: Aspirin 81 mg Enteric Coated Tablet PO SCH (08:19)
[2018-04-05] MEDS: Rifampin 300 MG CAP PO SCH (08:19)
[2018-04-05] MEDS: Famotidine 20 MG TAB PO SCH (08:19)
[2018-04-05] MEDS: Ferrous Gluconate 324 MG TAB PO SCH (08:19)
[2018-04-05] MEDS: Vancomycin HCl 1.25 GM in Sodium Chloride 0.9% 250 ML 250 ML IVPB SCH (08:20)
[2018-04-05] MEDS: Multivitamin W/ Minerals 1 TAB PO SCH (08:20)
--- NOTE | 2018-04-08 08:59 | DIS ---
DATE OF ADMISSION: 04/02/2018 DATE OF DISCHARGE: 04/05/2018 CONSULTANTS: Include Dr. Aidan Marsh as well as the [facility]. PREOPERATIVE DIAGNOSIS: Chronically-infected right total knee. POSTOPERATIVE DIAGNOSIS: Chronically-infected right total knee. PROCEDURE: Revision for infection of the right knee. BRIEF HOSPITAL COURSE: Mr. Montesinos is a 58-year-old male with a chronically-infected right total knee. The patient was indicated for the above-mentioned procedure. Postoperatively, he was admitted to the surgical floor in [facility], where he received postoperative IV antibiotics per Dr. Marsh as well as postoperative analgesics per the Anesthesia Team. He worked with physical and occupational therapist. PICC line was placed, so that he could be discharged home on IV antibiotics. His postoperative course was uncomplicated. DISCHARGE DISPOSITION: Home. DISCHARGE CONDITION: Stable. DISCHARGE INSTRUCTIONS: The patient will follow up with Dr. Marsh as scheduled. He will follow up with Dr. Puente as scheduled. DISCHARGE MEDICATIONS: See MAR. Job ID: [id number]
== END 2018-04-05 11:25 | disposition home or self-care (01) | DRG 467 ==
LOC: SURG A 04-02 07:46 → SJJU 04-02 16:04
PROVIDERS: ADMIT Orthopaedic Surgery; ATTEND Orthopaedic Surgery
PROC: 0SPC0JZ Removal of Synthetic Substitute from Right Knee Joint, Open Approach (ICD-10-PCS; principal; 2018-04-02)
PROC: 0SRC0J9 Replacement of Right Knee Joint with Synthetic Substitute, Cemented, Open Approach (ICD-10-PCS; 2018-04-02)
PROC: 05HY33Z Insertion of Infusion Device into Upper Vein, Percutaneous Approach (ICD-10-PCS; 2018-04-04)
DX: T84.53XA Infection and inflammatory reaction due to internal right knee prosthesis, initial encounter (principal); E87.1 Hypo-osmolality and hyponatremia; E66.9 Obesity, unspecified; N18.2 Chronic kidney disease, stage 2 (mild); Z96.651 Presence of right artificial knee joint; Z68.31 Body mass index [BMI] 31.0-31.9, adult; Y83.1 Surgical operation with implant of artificial internal device as the cause of abnormal reaction of the patient, or of later complication, without mention of misadventure at the time of the procedure
CPT/HCPCS: 36415; 36569; 80202; 85027; 87070; 87205; 88305; 88331; C1713; C1751; C1776; J0692; J1170; J1644; J1885; J2001; J2250; J2274; J2405; J2550; J2704; J2795; J3010; J3260; J3370; J3490; J7050; Q4166-KX-JC; S0028

== ENCOUNTER 2018-03-27 02:10 | Outpatient (CLI) | payer OTHER ==
[2018-03-28 17:12] LABS: #Eosinphils 0.1 thou/uL (0.0-0.7); #Lymphocytes 1.2 thou/uL (1.20-3.40); #Monocytes 0.6 thou/uL (0.11-0.59); #Neutrophils 3.1 thou/uL (1.40-6.50); %Basophils 0.9 % (0.0-1.0); %Eosinophils 1.6 % (0.0-10.0); %Lymphocytes 23.8 % (21.0-51.0); %Monocytes 12.5 % (0.0-10.0); %Neutrophils 61.1 % (42.0-75.0); Hemoglobin 12.4 g/dL (14.0-18.0); Mean Corpuscular HGB CONC 32.1 g/dL (32.0-36.0); Mean Corpuscular Hemoglobin 27.1 pg (27.0-31.0); Mean Corpuscular Volume 84.5 fL (78.0-98.0); Mean Platelet Volume 6.9 fL (7.4-10.4); Platelet Count 316 thou/uL (130-400); RBC Distribution Width 13.2 % (11.5-14.5); Red Blood Cell (RBC) Count 4.56 mill/uL (4.70-6.10); White Blood Cell (WBC) Count 5.1 thou/uL (4.8-10.8)
[2018-03-28 17:13] LABS: PTT 31.4 SEC (22.9-36.1)
[2018-03-28 17:23] LABS: Bilirubin Negative (Negative); Blood, Urine Negative (Negative); Clarity CLEAR (Clear); Glucose, Urine (Dipstick) Negative (Negative); Leukocyte Negative (Negative); Nitrite Negative (Negative); Protein, Urine (Dipstick) Negative (Neg-Trace); Specific Gravity, Urine 1.019 (1.002-1.036); Urobilinogen 0.2 mg/dL (0.2-1.0)
[2018-03-28 17:24] LABS: Bacteria/HPF None Seen HPF (None Seen); Hyaline Casts/LPF 0-3 HYALINE CAST LPF (0-3 Hyaline); RBC/HPF 0-3 HPF (0-3); Squamous Epithelial None Seen HPF (0-3); WBC/HPF None Seen HPF (0-3)
[2018-03-28 17:24] LABS: Anion Gap 13 mmol/L (10-20); BUN (Urea Nitrogen) 22 mg/dL (8.4-25.7); Calc. Creatinine Clearance 0 mL/min (70-130); Calcium 9.5 mg/dL (7.8-10.44); Carbon Dioxide 25 mmol/L (22-29); Chloride 101 mmol/L (98-107); Estimated GFR-MDRD 79; Glucose 81 mg/dL (70-105); Sodium 135 mmol/L (136-145)
== END 2018-03-27 02:11 | disposition home or self-care (01) ==
LOC: LABBT 02:10
PROVIDERS: ATTEND Orthopaedic Surgery
DX: Z01.812 Encounter for preprocedural laboratory examination (principal); T85.79XD Infection and inflammatory reaction due to other internal prosthetic devices, implants and grafts, subsequent encounter; Z96.651 Presence of right artificial knee joint
CPT/HCPCS: 80048; 81001; 85025; 85610; 85730; 86140; 86850; 86900; 86901; 87081

== ENCOUNTER 2018-04-30 13:33 | Outpatient (CLI) | payer OTHER ==
--- NOTE | 2018-04-30 14:39 | RAD ---
FOUR VIEWS RIGHT KNEE: History: Right knee infection. FINDINGS: AP, lateral, and both oblique views right knee obtained. The tibial component of the right knee arthroplasty has been surgically removed. There is a radiopaqu e spacer in place. Soft tissue swelling seen anterior to the right knee. Right knee surgical changes. No evidence of acute fracture seen. POS: [facility]
== END 2018-04-30 13:34 | disposition home or self-care (01) ==
LOC: BICRAD 13:33
PROVIDERS: ATTEND Internal Medicine Infectious Disease
DX: T84.53XD Infection and inflammatory reaction due to internal right knee prosthesis, subsequent encounter (principal)

== ENCOUNTER 2018-06-12 16:15 | Inpatient (IN) | payer OTHER ==
[2018-06-13 08:53] VITALS: BMI 31.1
[2018-06-14] MEDS ORDERED: Vancomycin HCl 1.5 GM in Sodium Chloride 0.9% 250 ML 300 ML IVPB SCH (10:15)
[2018-06-14] MEDS ORDERED: Midazolam HCl 2 mg/2 ml Vial ONE ×2 (11:13→13:36)
[2018-06-14] MEDS ORDERED: Fentanyl 100 MCG/2 ML VIAL ONE ×7 (11:13→18:41)
[2018-06-14] MEDS ORDERED: HYDROcodone/Acetaminophen 10/325 mg Tablet PO PRN ×4 (11:49→17:17)
[2018-06-14] MEDS ORDERED: Zolpidem Tartrate 5 MG TAB PO PRN ×2 (11:53→17:17)
[2018-06-14] MEDS ORDERED: Ondansetron ODT 4 MG TAB PO PRN (11:53)
[2018-06-14] MEDS ORDERED: Calcium Carbonate 500 MG ChewTAB PO PRN (11:53)
[2018-06-14] MEDS ORDERED: Tobramycin Sulfate 1.2 GM VIAL ONE ×2 (12:24→13:33)
[2018-06-14] MEDS ORDERED: Tobramycin/Dexamethasone Ophth Oint 3.5 GM TUBE ONE (13:32)
[2018-06-14] MEDS ORDERED: Ondansetron HCl/PF 4 MG/2 ML Vial IVP PRN (14:23)
[2018-06-14] MEDS ORDERED: Promethazine HCl 25 MG/ML VIAL SLOW IVP PRN (14:23)
[2018-06-14] MEDS ORDERED: Promethazine HCl 25 MG/ML VIAL IM PRN ×2 (14:23→17:17)
[2018-06-14] MEDS ORDERED: Ropivacaine 0.2% HCl/PF (40 MG/20 ML VIAL) ONE (15:18)
[2018-06-14] MEDS ORDERED: Bupivacaine HCl 0.5%/Epinephrine 1:200,000/PF 30 ml Vial ONE (15:18)
[2018-06-14] MEDS ORDERED: PHENYLEPHRINE-NS 100 MCG/ML 10 ML SYRINGE ONE (15:34)
[2018-06-14] MEDS ORDERED: Dexamethasone 20 MG/5 ML VIAL ONE (15:34)
[2018-06-14] MEDS ORDERED: Lidocaine 1% PF 5 ML VIAL ONE (15:34)
[2018-06-14] MEDS ORDERED: Ketorolac Tromethamine 30 MG/ML VIAL ONE (15:34)
[2018-06-14] MEDS ORDERED: Ondansetron PF 4 MG/2 ML Vial ONE (15:34)
[2018-06-14] MEDS ORDERED: Glycopyrrolate 0.2 MG/ML 5 ML SYRINGE ONE (15:34)
[2018-06-14] MEDS ORDERED: PROPOFOL 200 MG/20 ML VIAL ONE (15:34)
--- NOTE | 2018-06-14 16:24 | RAD ---
2 views right knee Post operative radiograph right knee AP and lateral views right knee obtained. Distal right femoral arthroplasty component is been removed. Radiopaque spacer remains in the proxima l right tibial plateau region. No evidence of acute fractures seen. Postoperative changes seen in the distal right femur and proxima l right tibia. IMPRESSION: postsurgical changes with spacer in place. No acute abnormality seen.
[2018-06-14] MEDS ORDERED: Ropivacaine HCl/PF 250 ML in Premix Bag 1 BAG NERVE BLCK SCH (17:17)
[2018-06-14] MEDS ORDERED: Ropivacaine HCl/PF 125 ML in Sodium Chloride 0.9% 125 ML NERVE BLCK SCH (17:17)
[2018-06-14] MEDS ORDERED: traMADol HCl 50 MG TAB PO PRN ×2 (17:17)
[2018-06-14] MEDS ORDERED: Ondansetron PF 4 MG/2 ML Vial IVP PRN (17:17)
[2018-06-14] MEDS ORDERED: Fentanyl 100 MCG/2 ML VIAL SLOW IVP SCH (18:45)
[2018-06-14] MEDS: Calcium Carbonate 500 MG ChewTAB PO SCH (20:57)
[2018-06-14] MEDS: Rifampin 300 MG CAP PO SCH (20:59)
[2018-06-14] MEDS: Aspirin 81 mg Enteric Coated Tablet PO SCH (20:59)
[2018-06-15 05:21] LABS: #Monocytes 0.9 thou/uL (0.11-0.59); #Neutrophils 6.1 thou/uL (1.40-6.50); %Basophils 0.3 % (0.0-1.0); %Eosinophils 0.4 % (0.0-10.0); %Lymphocytes 12.1 % (21.0-51.0); %Monocytes 10.7 % (0.0-10.0); %Neutrophils 76.6 % (42.0-75.0); Hemoglobin 10.2 g/dL (14.0-18.0); Mean Corpuscular HGB CONC 33.1 g/dL (32.0-36.0); Mean Corpuscular Hemoglobin 27.2 pg (27.0-31.0); Mean Corpuscular Volume 82.1 fL (78.0-98.0); Mean Platelet Volume 6.8 fL (7.4-10.4); Platelet Count 285 thou/uL (130-400); RBC Distribution Width 13.2 % (11.5-14.5); Red Blood Cell (RBC) Count 3.76 mill/uL (4.70-6.10)
[2018-06-15] MEDS: Fentanyl 100 MCG/2 ML VIAL IV PRN ×2 (05:23→09:07)
[2018-06-15] MEDS: Rifampin 300 MG CAP PO SCH ×2 (09:06→20:33)
[2018-06-15] MEDS: Docusate 100 MG CAP PO SCH (09:07)
[2018-06-15] MEDS: Calcium Carbonate 500 MG ChewTAB PO SCH ×2 (09:07→16:35)
[2018-06-15] MEDS: Aspirin 81 mg Enteric Coated Tablet PO SCH ×2 (09:07→20:33)
[2018-06-15] MEDS ORDERED: Sodium Chloride 0.9% 100 ML ONE (09:54)
[2018-06-15] MEDS: Fentanyl 20 mcg/ml (100 ml CADD) IV PRN ×2 (09:54→23:38)
[2018-06-16] MEDS: Aspirin 81 mg Enteric Coated Tablet PO SCH ×2 (08:48→21:19)
[2018-06-16] MEDS: Docusate 100 MG CAP PO SCH (08:48)
[2018-06-16] MEDS: Rifampin 300 MG CAP PO SCH ×2 (08:48→21:19)
[2018-06-16] MEDS: Calcium Carbonate 500 MG ChewTAB PO SCH ×2 (08:49→20:27)
[2018-06-16] MEDS: Fentanyl 20 mcg/ml (100 ml CADD) IV PRN (12:17)
[2018-06-17] MEDS: Fentanyl 20 mcg/ml (100 ml CADD) IV PRN ×2 (01:56→16:41)
--- NOTE | 2018-06-17 08:30 | OP ---
DATE OF PROCEDURE: 06/14/2018 PREOPERATIVE DIAGNOSIS: Infected right total knee. POSTOPERATIVE DIAGNOSIS: Infected right total knee. PROCEDURE: Removal of cemented total knee, complicated, placement of antibiotic spacer. WEIGHT AND BALANCE CONTROL AGENT: Samuel Barth PA-C. BLOOD LOSS: About 100 mL. SPECIMEN: Cultured. DRAINS: None. COMPLICATION: None. DESCRIPTION OF PROCEDURE: The patient was taken to the operating room, where general anesthesia was induced. His right leg was prepped and draped in sterile fashion. I opened up his old scar over, there were several areas where the infection was pointing, these were excised. Medial parapatellar arthrotomy, this was taken down with the joint. I performed extensive irrigation and debridement and recreated the gutters. I debrided all necrotic tissue and did a synovectomy, near total, just being very careful around the neurovascular bundles posteriorly. The implants were removed with osteotomes and chisels and long-handled instruments. I was able to get all the cement out of the femur and the tibia and also removed the cement plug from the tibia. I used a pulsatile lavage brush to brush the canals of the femur and the tibia. Used pulsatile lavage irrigation to irrigate the entire joint. I then placed an antibiotic spacer containing a total of 6 g of vancomycin and about 6 g of tobramycin. This was made into a mono block. Capsule was repaired with #2 Vicryl and #2 Quill and the skin was closed with Prolene. Tourniquet was released. Sterile dressing was applied. The patient was placed in a long splint with medial and lateral slabs and a posterior splint. Job ID: [id number]
[2018-06-17] MEDS: Docusate 100 MG CAP PO SCH (08:55)
[2018-06-17] MEDS: Aspirin 81 mg Enteric Coated Tablet PO SCH ×2 (08:55→20:24)
[2018-06-17] MEDS: Calcium Carbonate 500 MG ChewTAB PO SCH ×2 (08:55→16:40)
[2018-06-17] MEDS: Rifampin 300 MG CAP PO SCH ×2 (08:56→20:24)
--- NOTE | 2018-06-17 08:57 | PRG ---
DATE OF SERVICE: 06/17/2018 SUBJECTIVE: Spencer is a 58-year-old white male, who is postop day 3 for a right knee explantation with antibiotic spacer placement. He seems to be in pretty good spirits today. Clinical panels revealed that he ambulated 120 to 250 feet over the weekend. He has remained stable over the weekend as well. He has his pain is very well controlled. He feels better this morning. OBJECTIVE: VITAL SIGNS: Temperature 98.2, pulse 79, respiratory rate 20, and nonlabored, O2 saturation 95% on room air, and blood pressure 122/80. GENERAL: He is alert and oriented to person, place, time, situation, grossly nonfocal. Appropriate with examiner and responds well. EXTREMITIES: His inspection of the right lower extremity demonstrates some strike through posteriorly on his splint, but it is dried currently. He is neurovascularly intact in the right lower extremity and has good full digital excursion. MICROBIOLOGY DATA: No culture growth at 48 hours. No islets noted. LABORATORY DATA: Hemoglobin 10, hematocrit 30.9, and white blood cell count 8. IMPRESSION: 1. A 58-year-old white male postoperative day 3 right knee explantation of total knee arthroplasty essentially a staged revision. 2. No organism identified. 3. Acute blood loss anemia. PLAN: We will continue to follow, pending cultures. Continue antibiotics. Consider home discharge today after swabbing for a fresh blood. Job ID: [id number]
[2018-06-17] MEDS: CEFAZOLIN 2 GM in Premix Bag 1 BAG IVPB SCH ×2 (13:56→21:34)
[2018-06-17] MEDS: Micafungin 100 MG in Sodium Chloride 0.9% 100 ML IVPB SCH (14:04)
--- NOTE | 2018-06-17 20:09 | CON ---
DATE OF CONSULTATION: 06/17/2018 REASON FOR CONSULTATION: Right knee infection. HISTORY OF PRESENT ILLNESS: A 58-year-old, who is known to us from multiple prior visits. 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 He has been receiving broad-spectrum coverage since, and after initial improvement, there was recrudescence of inflammatory changes and development of this sort of bullous like areas. I saw him in the office, aspirated about 1 mL of turbid red fluid and submitted for cultures and eventually was admitted. Dr. Puente performed surgery with removal of that implant/spacer. He is in the second postop day now. Denies any headaches, visual symptoms, sore throat, odynophagia, or dysphagia. No cough or sputum production. No chest pain. No abdominal pain or diarrhea. No genitourinary symptoms. Minor pain in the right knee area. PAST MEDICAL HISTORY: Osteoarthrosis, multiple joint injuries related to his previous sport activities, numerous right knee replacements, revisions, bilateral shoulder operations, and right ankle fracture. ALLERGIES: NONE. SOCIAL HISTORY: History of alcoholism up to 15 years prior to visit. Never smoker. 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 FAMILY HISTORY: Noncontributory. MEDICATIONS: Had been on cefepime and daptomycin. He is currently on cefazolin, vancomycin, and rifampin. PHYSICAL EXAMINATION: VITAL SIGNS: Temperature has been normal. BP 130/86, pulse 86, respirations 18, and O2 saturation 95%. GENERAL: Appears in no distress, pleasant. Right knee with dressing. Peripheral IV access. PICC line in left upper extremity. NECK: No lymphadenopathy. HEENT: Noncontributory. LUNGS: Clear. HEART: S1 and S2 regular rate. No S3 or S4. ABDOMEN: Soft, not distended or tender. No ascites. No bladder distention. EXTREMITIES: Pulses are 2+ in dorsalis pedis. NEUROLOGIC: Nonfocal including cognitive function. LABORATORY DATA: White cell count 8.0, hemoglobin 10, platelets 285 with 76% neutrophils. Sodium 139, creatinine 1.08. Liver profile within normal limits. CRP 4.12. Urinalysis was normal. The wbc in the knee was 13,500, rbc is 502,000 per cubic mm, 69% neutrophils. Cultures are pending. No anaerobes isolated, though the aspirate that I obtained recently in the office showed a mold species in rare amounts. In July last year, he also had a mold species in rare amounts. I have asked the laboratory to identify further this organism. 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 The patient had the latest spacer removed and now he has just a regular block spacer in place. This new finding of a mold growing from the second sample increases the risk that the original isolated from last year is a true mold infection. I have asked microbiology lab to identify this organism, so we can interpret it better. In the meantime, we will add micafungin to regimen. Discharge planning should be feasible today, I believe. Job ID: [id number]
[2018-06-18] MEDS: Fentanyl 20 mcg/ml (100 ml CADD) IV PRN (05:04)
[2018-06-18] MEDS: CEFAZOLIN 2 GM in Premix Bag 1 BAG IVPB SCH (05:04)
[2018-06-18] MEDS: Calcium Carbonate 500 MG ChewTAB PO SCH (08:15)
[2018-06-18] MEDS: Rifampin 300 MG CAP PO SCH (08:16)
[2018-06-18] MEDS: Aspirin 81 mg Enteric Coated Tablet PO SCH (08:16)
[2018-06-18] MEDS: Docusate 100 MG CAP PO SCH (08:16)
[2018-06-18 08:21] VITALS: TEMP 98.1
[2018-06-18] MEDS ORDERED: HYDROcodone/Acetaminophen 10/325 mg Tablet PO PRN ×2 (10:34)
[2018-06-18] MEDS ORDERED: traMADol HCl 50 MG TAB PO PRN (10:35)
[2018-06-18] MEDS ORDERED: Ibuprofen 800 MG TAB PO PRN (10:35)
[2018-06-18 12:19] VITALS: BP 133/74
[2018-06-18] MEDS: Micafungin 100 MG in Sodium Chloride 0.9% 100 ML IVPB SCH (14:00)
== END 2018-06-18 15:20 | disposition home or self-care (01) | DRG 467 ==
LOC: SURG A 06-14 09:18
PROVIDERS: ADMIT Orthopaedic Surgery; ATTEND Orthopaedic Surgery
PROC: 0SPC0JZ Removal of Synthetic Substitute from Right Knee Joint, Open Approach (ICD-10-PCS; principal; 2018-06-14)
PROC: 0SRC0EZ Replacement of Right Knee Joint with Articulating Spacer, Open Approach (ICD-10-PCS; 2018-06-14)
PROC: 0SBC0ZZ Excision of Right Knee Joint, Open Approach (ICD-10-PCS; 2018-06-14)
DX: T84.53XA Infection and inflammatory reaction due to internal right knee prosthesis, initial encounter (principal); D62 Acute posthemorrhagic anemia; Z96.651 Presence of right artificial knee joint; L30.9 Dermatitis, unspecified; K30 Functional dyspepsia; M19.90 Unspecified osteoarthritis, unspecified site; F10.20 Alcohol dependence, uncomplicated; Z79.899 Other long term (current) drug therapy
CPT/HCPCS: 36415; 85025; 87070; 87205; C1713; J0670; J0690; J1100; J1885; J2001; J2248; J2250; J2405; J2704; J2795; J3010; J3260; J3370; J3490; J7050; Q0162